=== PATIENT | male | born 1980 | race Caucasian/White ===

== ENCOUNTER 2023-09-20 10:59 | Emergency (ER) | payer BC, SELFPAY ==
[2023-09-20 11:07] VITALS: BP 158/98
--- NOTE | 2023-09-20 12:02 | ED.GENMED ---
History of Present Illness
General
Chief Complaint: Psychiatric Problem
Source: patient and records
Exam Limitations: none
Time Seen by Provider: 09/20/23 11:32
Nursing documentation reviewed up to this point in time: agreed with
Travel History
Have you had any contact with someone who has COVID-19?: No
Do you have any symptoms of coronavirus? Fever > 100 degrees, chills, cough, shortness of breath, sore throat, loss of taste or smell, muscle aches, or headache?: No
History of Present Illness
History of Present Illness:
40-year-old male brought in 302 by his father for noncompliant with his meds apparently harassing neighbors has schizoaffective disorder apparently was pulled over by police due to some sort of minor infraction
Is cooperative here speech is a bit pressured at times bizarre and paranoid accompanied by a friend
Past History
Past History
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
ED Past Surgical History: Urological and Other (Nephrectomy)
Social History
Tobacco: Non-smoker
Alcohol: None
Drug: None and Marijuana (has cannibis card)
Personal: Single
Living: with roommate
Employment: Employed
Review of Systems
Review of Systems
All Other Systems: Not applicable
Constitutional: Reports sleep disturbance; Denies fever
Psychiatric: Reports anxiety
Phy Exam
Physical Exam
Physical Exam:
Physical Exam
General: 42 male nontoxic-appearing
Neck: No jaundice
Lungs: no acute respiratory distress.
Neuro: alert and oriented. no focal neurological deficits
Skin: no rash
Psychiatric: Cooperative at times manic paranoid not suicidal
Extremities: no edema.
Course
Orders/Labs/Results
Orders:
Orders
09/20/23 11:17
Fentanyl, Urine Urgent
Urine Drug Abuse Screen Urgent
Date Specimen was Collected: 09/20/23
Time Specimen was Collected: 11:15
Abnormal Lab Results
09/20/23
11:17
U Benzodiazepines Scrn Positive H
(Negative)
U Marijuana (THC) Screen Positive H
(Negative)
Vital Signs
Initial and Last Documented VS:
Initial Vital Signs
Temp Pulse Resp BP Pulse Ox
98.9 F 98 18 158/98 98
09/20/23 11:07 09/20/23 11:07 09/20/23 11:07 09/20/23 11:07 09/20/23 11:07
Last Documented Vital Signs
Temp Pulse Resp BP Pulse Ox
98.9 F 98 18 158/98 98
09/20/23 11:07 09/20/23 11:07 09/20/23 11:07 09/20/23 11:07 09/20/23 11:07
MDM/Problems Addressed
Differential Diagnosis Includes:
Psychiatric toxic metabolic no signs of active infection
MDM/Problems Addressed:
Manic
Chronic conditions affecting care:
Mental illness
Chronic conditions affecting care: Psychiatric illness
Acute Exacerbation and/or Progression of Chronic Illness: Psychiatric illness
*Pulse Oximetry
Patient hypoxic: no
*Critical Care Note
Total Time (30-74mins, 75-104mins- exclusive of procedures): Not Applicable
Data Reviewed
Review of Other/Old Records Reveals: Records
Source: records
Update Note
Update Note:
Update reviewed with psychiatry 302 has been upheld
ED Attending Note
-
Portions of this chart may have been created with voice recognition software.� Occasional wrong word or��sound alike� substitutions may have occurred due to the inherent limitations of voice recognition software.
Discharge Plan
Departure
Patient Disposition: Psych Facility
Date of Disposition: 09/20/23
Time of Disposition: 12:38
Discharge Problem:
Schizoaffective disorder
Prescriptions:
No Action
benztropine 0.5 MG tablet
0.5 mg PO QPM
Patient Comments:
Patient takes with risperdone
risperidone 1 MG tablet
1 mg PO QPM
Referrals:
UNKNOWN - PT DOES,NOT KNOW [Family Provider] -
Interventions
Interventions:
*Risk Screen - Suicide Last Done: 09/20/23 11:14
*General Assessment Last Done: 09/20/23 11:07
*Neglect/Abuse Screening Last Done: 09/20/23 11:07
ED-Psychological Assessment Last Done: 09/20/23 11:16
[2023-09-20 12:07] LABS: Amphetamines Negative (Negative); Barbiturates Negative (Negative); Benzodiazepines Positive (Negative); Buprenorphine Negative (Negative); Cocaine Negative (Negative); Marijuana Positive (Negative); Methadone Negative (Negative); Methamphetamines Negative (Negative); Opiates Negative (Negative); Phencyclidine Negative (Negative); Tricyclic Antidepressants Negative (Negative)
[2023-09-20 12:49] LABS: Fentanyl, Urine Negative (Negative)
--- NOTE | 2023-09-20 12:53 | CON.MD ---
Consultation - Medical
-
patient seen chart reviewed. discussed w dr navarro. patient is a 42 yr old male dx in the past w schizoaffective disorder. a friend accompanied him. a 302 petition was filed by his father alleging his psych illness was out of control and patient
was so impaired vis a vis judgment that he drove in to a tree in the past 24 hours. patient did not deny this and admitted he has taken an ativan to calm self down. he was a difficult historian perseverating on the thought that his father had
entered his home without permission and left the sliding door open. the patient said he had been on his way to [facility] as he decided he needed psychiatric help when they were stopped by police and brought here bc of the 302. the patient has hx of
not taking his psych meds. he admitted he uses only ativan and rarely. in the past he was using mj. says he no longer uses it. he does have some difficulty sleeping. says appetite is okay. he denied thoughts of harm to self or others. denied
hallucinations but seems to be rather paranoid and delusional. he says he thinks the neighbors and his father are spying on him
past psych hx has been hospitalized in the past for psychosis on a 302. he was most recently rx by dr shanks for psych issues. he has been on many antipsychotics but does not feel they are helpful
medical hx wilm's tumor age [age]
fh strong family hx suicide including mother and three other relatives
substance abuse denied. used to use cannabis
social hx patient lives in a home which is coowned by his father mother when he was a tot. 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
mse alert ox3 speech rather rapid thought process perseverative on the them of his father entering his home. he had a hard time providing relevant answers to ? mood is grandiose affect labile denies
suicidal thoughts seems to be rather paranoid w underlying some delusions insight judgment lacking
dx schizoaffective d.o
plan would uphold 302. patient himself was seeking evaluation and treatment of his medical illness and given the events described in the 302 he does seem to be at risk given poor judgment eg ativan and
driving into a tree subsequently medical clearance if required by psych facility
== END 2023-09-20 22:50 ==
LOC: EMR 10:59
PROVIDERS: EMERGENCY PHYSICIAN Emergency Medicine; OTHER PHYSICIAN Psychiatry & Neurology Psychiatry
DX: F25.9 Schizoaffective disorder, unspecified (principal); F22 Delusional disorders; Z91.148 Patient's other noncompliance with medication regimen for other reason; F41.9 Anxiety disorder, unspecified; F31.9 Bipolar disorder, unspecified; Z90.5 Acquired absence of kidney
CPT/HCPCS: 99285; 80306; 80307